=== PATIENT | female | born 1990 | race Caucasian/White ===

== ENCOUNTER 2018-06-07 06:05 | Inpatient (IN) ==
[~2018-06-07 06:05] MED LIST: CITRIC ACID/SODIUM CITRATE 30 ML CUP PO ONE; CefOXitin Inj 2 GM in Sodium Chloride 0.9% 100 ML IV ONE; FAMOTIDINE 20 MG/2 ML VIAL IVP ONE; LIDOCAINE HCL 2 % 10 ML JELLY URO-JECT TOPICAL PRN; LIDOCAINE W/ SODIUM BICARB 0.5 ML SYR SUBD PRN; Lactated Ringers 1,000 ML PRIMARY IV ONE; Metoclopramide Inj 10 MG/2 ML VIAL IV ONE
[2018-06-07] MEDS ORDERED: Lactated Ringers 1,000 ML PRIMARY IV SCH (06:15)
[2018-06-07] MEDS ORDERED: Oxytocin 20 Units + LR 20 UNIT/1,000 ML BAG IV SCH ×2 (06:15→09:47)
[2018-06-07] MEDS ORDERED: OXYTOCIN 10 UNIT/1 ML ONE ×2 (06:26→08:57)
[2018-06-07] MEDS ORDERED: BUPIVACAINE SPINAL 7.5 MG/1 ML - 2 ML IV ONE (06:26)
[2018-06-07] MEDS ORDERED: Sodium Chloride 0.9% vial 10 ML ONE (06:27)
[2018-06-07] MEDS ORDERED: ePHEDrine Inj 50 MG/ML AMP ONE (06:27)
[2018-06-07] MEDS ORDERED: LIDOCAINE W/ SODIUM BICARB 0.5 ML SYR ONE (06:30)
[2018-06-07 07:05] LABS: Hematocrit [HCT] 36.5 % (37.0-47.0); Hemoglobin [HGB] 12.1 g/dL (12.0-16.0); MEAN CORPUSCULAR HEMOGLOBIN 28.9 PG (27-31); MEAN CORPUSCULAR HGB CONC 33.2 g/dL (33-37); MEAN CORPUSCULAR VOLUME 87.1 FL (81-99); MEAN PLATELET VOLUME 10.6 FL (7.4-12.2); RED BLOOD COUNT 4.19 10^6/uL (4.20-5.40)
[2018-06-07] MEDS ORDERED: DEXAMETHASONE PF 10 MG/1 ML VIAL IVP ONE (07:07)
[2018-06-07] MEDS ORDERED: ONDANSETRON 4 MG/2 ML VIAL IVP ONE (07:07)
[2018-06-07] MEDS ORDERED: PROPOFOL 10 MG/1 ML (200 MG/20 ML) VIAL IV ONE (07:22)
[2018-06-07] MEDS ORDERED: LIDOCAINE MPF 2% - 5 ML (20 MG/1 ML) ONE ×2 (07:22→08:59)
[2018-06-07] MEDS ORDERED: fentaNYL Inj 250 MCG/5 ML VIAL ONE (07:24)
[2018-06-07] MEDS ORDERED: KETAMINE 100 MG/1 ML - 5 ML ONE (07:24)
[2018-06-07] MEDS ORDERED: MIDAZOLAM 5 MG/1 ML ONE (07:24)
[2018-06-07] MEDS ORDERED: ROCURONIUM 10 MG/1 ML - 5 ML VIAL IVP ONE (07:28)
[2018-06-07] MEDS ORDERED: SUCCINYLCHOLINE CHLORIDE 20 MG/1 ML - 10 ML ONE (07:28)
[2018-06-07] MEDS ORDERED: Acetaminophen 1000mg Inj 1,000 MG/100 ML VIAL IV ONE (07:45)
[2018-06-07] MEDS ORDERED: METHYLERGONOVINE MALEATE 0.2 MG/1 ML VIAL IM ONE (08:22)
[2018-06-07] MEDS ORDERED: BUPivacaine Liposome/PF (Exparel) Inj 20ml vial INFIL ONE (08:38)
[2018-06-07] MEDS ORDERED: KETOROLAC 30 MG/1 ML VIAL ONE (08:38)
[2018-06-07] MEDS ORDERED: BUPivacaine Inj 0.25% PF - 10ml vial ONE (08:40)
[2018-06-07] MEDS ORDERED: SUGAMMADEX SODIUM 200 MG/2 ML VIAL IV ONE (08:46)
[2018-06-07] MEDS ORDERED: Prochlorperazine Edisylate Inj 10mg/2ml vial IVP PRN ×2 (09:20→09:45)
[2018-06-07] MEDS ORDERED: HYDROmorphone 2 MG/1 ML IVP PRN (09:20)
[2018-06-07] MEDS ORDERED: LIDOCAINE W/ SODIUM BICARB 0.5 ML SYR SUBD PRN (09:20)
--- NOTE | 2018-06-07 09:22 | CRNA.PROGR ---
Anesthesia Recovery Phase I - Post Anesthesia Evaluation Patient's Condition on Arrival in Phase I: Stable Pain Level: 1
--- NOTE | 2018-06-07 09:22 | CRNA.PROGR ---
Anesthesia Time - Procedure/Recovery Time Start Date: 06/07/18 End Date: 06/07/18 Anesthesia : Time In: 08:00 Anesthesia : Time Out: 09:08 Anesthesia : Total Time: 68 - Total Anesthesia Time Total Anesthesia Time (minutes): 68 - Other Weight: 83.915 kg Height: 5 ft 2 in Body Mass Index (BMI): 33.8 Physical Status: P2 Anesthesia Type: General Anesthesia : ET
[2018-06-07] MEDS: MORPHINE SULFATE 2 MG/1 ML IVP PRN ×2 (09:33→09:45)
[2018-06-07] MEDS ORDERED: MORPHINE SULFATE 2 MG/1 ML ONE (09:36)
[2018-06-07] MEDS ORDERED: LANOLIN HPA 40 GM TUBE TOPICAL PRN (09:47)
[2018-06-07] MEDS ORDERED: BUTORPHANOL TARTRATE 2 MG/1 ML VIAL IVP PRN (09:47)
[2018-06-07] MEDS ORDERED: Keys-Morphine PCA PRN (09:47)
[2018-06-07] MEDS ORDERED: Nalbuphine Inj 20 MG/ML Ampule IVP PRN (09:47)
[2018-06-07] MEDS ORDERED: NALOXONE 0.4 MG/1 ML VIAL IVP PRN (09:47)
[2018-06-07] MEDS ORDERED: FAMOTIDINE 20 MG/2 ML VIAL IVP PRN (09:47)
[2018-06-07] MEDS ORDERED: DIPH,PERTUSS,TET(ADACEL) VAC/PF 0.5 ML (Tdap) IM ONE (09:47)
[2018-06-07] MEDS ORDERED: ONDANSETRON 4 MG/2 ML VIAL IVP PRN (09:47)
[2018-06-07] MEDS ORDERED: HYDROcodone-APAP 5 MG -325 MG TABLET PO PRN (09:47)
[2018-06-07] MEDS ORDERED: diphenhydrAMINE 50 MG/1 ML VIAL IV PRN (09:47)
[2018-06-07] MEDS ORDERED: Naloxone Inj 0.01 MG, Sodium Chloride 0.9% vial 1 ML IVP PRN ×2 (09:47)
[2018-06-07] MEDS ORDERED: diphenhydrAMINE 25 MG CAPSULE PO PRN (09:47)
[2018-06-07] MEDS ORDERED: MORPHINE SULFATE/PF PCA 30 MG/30 ML IV SCH (09:47)
[2018-06-07] MEDS ORDERED: CALCIUM CARBONATE 500 MG (TUMS) CHEWABLE TABLET PO PRN (09:47)
--- NOTE | 2018-06-07 09:53 | OB.OP.NOTE ---
Operative Report Surgeon: Oliva Cespedes MD Iron Pourer: Ashok Mtz MD Anesthesia Type: General Anesthesia Provider: Edwardo Dixon CRNA Surgery Date: 06/07/18 Preoperative Diagnosis: Previous delivery x 2; satisfied parity, severe anxiety with panic attacks Postoperative Diagnosis: same, delivered Procedure: Repeat section with bilateral salpingectomy Complications: none Estimated Blood Loss (mL): 800 Urine Output (mL): 300 Fluids: 1800 cc LR, 20 mU of pitocin Indications: We do not offer vaginal after section trials at our facility and the patient did not desire this. She is requesting a repeat section with bilateral salpingectomy for satisfied parity Findings: male infant, cephalic presentation, clear amniotic fluid. Description of Procedure: The patient was taken to the operating room. A carrillo catheter was placed. She was then prepared and draped in the normal sterile fashion in the dorsal supine position with a leftward tilt. General anesthetic was administered per the SENIOR ANDROID DEVELOPER. A Pfannenstiel skin incision was then made with the scalpel and carried through to the underlying layer of fascia with the Bovie. The subcutaneous tissue was noted to be quite dense with adhesions. The fascia was incised in the midline and the incision extended laterally with the Bovie. The superior aspect of the fascial incision was then grasped with the Fitz clamps, elevated, and the underlying rectus muscles dissected off bluntly. Attention was then turned to the inferior aspect of this incision which, in a similar fashion, was grasped with the Fitz clamps and the rectus muscles dissected off both bluntly and with the Bovie. The rectus muscles were then in the midline, and the peritoneum identified and entered digitally. The peritoneal incision was then extended superiorly and inferiorly with good visualization of the bladder. The Esau retractor was then inserted and the vesicouterine peritoneum was identified. The lower uterine segment was incised in a transverse fashion with the scalpel. The uterine incision was then extended laterally in a blunt fashion. The infant's head was delivered atraumatically. The nose and mouth were suctioned with the bulb suction and the cord clamped and cut after 45 seconds for delayed cord clamping. The infant was handed off to the awaiting nurse. Cord gases and cord blood were sent for analysis. The placenta was then removed manually; the uterus exteriorized, and cleared of all clots and debris. The uterine incision was repaired with 0 Vicryl in a running, locked fashion. A second layer of the same suture was used to obtain excellent hemostasis. Using the gyrus, the right and then the left fallopian tubes were removed in their entirety. They will be sent to pathology. Hemostasis was assured. The peritoneal cavity was then copiously irrigated with warm saline. The uterus was returned to the abdomen. The paracolic gutters were copiously irrigated with warm saline and a second look at the uterine incision continued to reveal excellent hemostasis. The peritoneum was closed with 3-0 Vicryl. The fascia was reapproximated with 0 Vicryl in a running fashion. The subcutaneous space was irrigated copiously with warm saline and then closed first with 3-0 Vicryl and more superficially with Insorb absorbable sutures. The skin was reapproximated with Steri-Strips and a Silverlon dressing applied. Fundal massage was completed with no clots in the vaginal vault. The patient tolerated the procedure well. Sponge, lap, and needle counts were correct x2. Mefoxin was given preoperatively less than one hour prior to incision time. The patient was taken to the recovery room in stable condition. Patient Problems - Patient Problem List (1) Status post repeat low transverse section Status: Acute Code(s): Z98.89 - Other specified postprocedural states Category: Surgical
[2018-06-07] MEDS: KETOROLAC 15 MG/1 ML VIAL IVP SCH ×2 (14:42→21:15)
[2018-06-07] MEDS: D5-LR 1,000 ML PRIMARY IV SCH (16:13)
[2018-06-08] MEDS: D5-LR 1,000 ML PRIMARY IV SCH ×3 (00:17→16:47)
[2018-06-08] MEDS: KETOROLAC 15 MG/1 ML VIAL IVP SCH ×3 (02:47→14:04)
[2018-06-08] MEDS ORDERED: Sodium Chloride 0.9% 500 ML IV ONE (05:10)
[2018-06-08] MEDS ORDERED: Keys-Morphine Palliative Care ONE (07:55)
[2018-06-08] MEDS: Prenatal Multivitamin Tab 1 TAB TAB PO SCH (08:54)
[2018-06-08] MEDS: Senna/Docusate Tab 1 TAB TAB PO SCH ×2 (09:05→20:05)
[2018-06-08 10:03] LABS: Hemoglobin [HGB] 8.9 g/dL (12.0-16.0); MEAN CORPUSCULAR HEMOGLOBIN 28.7 PG (27-31); MEAN CORPUSCULAR HGB CONC 31.8 g/dL (33-37); MEAN CORPUSCULAR VOLUME 90.3 FL (81-99); MEAN PLATELET VOLUME 10.8 FL (7.4-12.2); RED BLOOD COUNT 3.1 10^6/uL (4.20-5.40)
--- NOTE | 2018-06-08 12:08 | CRNA.PROGR ---
Anesthesia Note - Progress Notes Anesthesia Progress Note: Pt up in chair, breast feeding, has company. Has showered and has no compaints to report. Indu GIANG
[2018-06-08] MEDS: FERROUS GLUCONATE 324 MG TABLET PO SCH ×3 (14:05→20:05)
[2018-06-08] MEDS: SIMETHICONE 80 MG TABLET PO PRN (14:10)
[2018-06-08] MEDS: IBUPROFEN 800 MG TABLET PO SCH (20:05)
[2018-06-09] MEDS: IBUPROFEN 800 MG TABLET PO SCH ×2 (03:49→12:13)
[2018-06-09] MEDS: D5-LR 1,000 ML PRIMARY IV SCH ×2 (06:10→07:42)
[2018-06-09] MEDS: Prenatal Multivitamin Tab 1 TAB TAB PO SCH (09:10)
[2018-06-09] MEDS: Senna/Docusate Tab 1 TAB TAB PO SCH (09:10)
[2018-06-09] MEDS: SIMETHICONE 80 MG TABLET PO PRN (09:10)
[2018-06-09] MEDS: FERROUS GLUCONATE 324 MG TABLET PO SCH (09:10)
--- NOTE | 2018-06-13 11:55 | OB.PROGRES ---
Subjective Post Day: 1 Pain Management: PO Mike Catheter: No Flatus: Yes Lochia Color: Rubra/Red Small 10-25 ml Diet: Regular Feeding Method: Exculsively Ambulating: Yes Concerns / Additional Information: Breast feeding going very well. Passing a few small clots, but this happens when she has been sitting or laying for a prolonged period of time. Had to take some gas-X earlier today to help with bloating and gas pains. Objective - General General Appearance: POSITIVE: No Acute Distress, Cooperative - Cardiovacular Cardiovascular Exam: POSITIVE: RRR, No Murmur Edema: +1 Pedal Edema Extremities: Negative Shiloh's - Bilaterally - Respiratory Respiratory Exam: POSITIVE: Clear to Auscultation - Bilaterally, Breathing Non Labored - Abdomen Bowel Sounds: Present Abdominal Wound Assessment: Silverlone Dressing Assesstment / Plan (1) Status post repeat low transverse section Status: Acute Assessment / Plan: -routine cares. -breast feeding going well. -rubella immune. -rh positive. -continue ambulation. -possible d/c home tomorrow.
--- NOTE | 2018-06-13 12:04 | DCSUMMARY ---
Hospitalization Summary Admit Date: 06/07/18 Discharge Date: 06/09/18 Primary Diagnosis:: Term IUP, gest. diabetes, satisfied parity, anxiety d/o Secondary Diagnosis:: same, delivered. Primary Surgery and Date: Repeat section with bilateral salpingectomy Delivery Type: Exam - Vitals Vital Signs: Vital Signs Temperature 98.5 F Temperature Source Oral Pulse Rate [Pulse Oximeter 82 Right] Pulse Rate 64 Respiratory Rate 14 Blood Pressure [Left Arm] 103/64 Blood Pressure [Right Arm] 104/51 Blood Pressure 113/76 Pulse Ox 96 Oxygen Flow Rate 1 Oxygen Delivery Method Room Air Height 5 ft 2 in Weight 185 lb Patient Problems - Patient Problem List (1) Status post repeat low transverse section Status: Acute Code(s): Z98.89 - Other specified postprocedural states Category: Surgical
[2018-06-28 14:24] VITALS: BP 104/51; RESP 14; TEMP 98.5; O2SAT 96
== END 2018-06-09 13:07 | disposition home or self-care (01) | DRG 785 ==
LOC: OBOR 06:05 → OBIP 09:48
PROVIDERS: ADMIT Family Medicine; ATTEND Family Medicine